=== PATIENT | male | born 1980 | race Caucasian/White ===

== ENCOUNTER 2025-04-29 23:12 | Emergency (ER) | payer SELFPAY ==
[2025-04-29 23:16] VITALS: BP 121/66; PULSE 49; RESP 16; TEMP 36.8; O2SAT 100
--- NOTE | 2025-04-29 23:19 | W.ED.GENAD ---
Discharge Plan Disposition Patient Disposition: [facility] Condition: Good Discharge Details Clinical Impression: Encounter for medical clearance for patient hold Primary Care Provider: Unknown,Unknown ED Provider: Estuardo Smallwood and New Rx's Prescriptions: No Action buprenorphine-naloxone [Suboxone] sublingual Discharge Instructions Additional Instructions: You have been seen and medically cleared with no apparent acute emergent issues or complaints. You are being released into police custody. Return to ED with any concerns. HPI General Mode of arrival: ambulatory. Date/Time Provider Initiated Documentation: 04/29/25 23:19. Limitations to Documentation: no limitations. Information obtained by: patient, police and RN notes reviewed. HPI Narrative: Patient is brought to ED by [facility] for medical clearance. Patient reportedly found slumped over in his vehicle with tinfoil in his lap. Patient has no complaints. He has no significant past medical history according to him. He is on Suboxone. He does admit to smoking marijuana but denies any alcohol use. He has no physical complaints. Related Data Home Medications ?Medication ?Instructions ?Recorded ?Confirmed buprenorphine-naloxone sublingual 04/29/25 Allergies Allergy/AdvReac Type Severity Reaction Status Date / Time Penicillins Allergy Unknown unknown Verified 04/29/25 23:21 General Stated Complaint: GenMedical NIR: 5 Exam Narrative Exam Narrative: Const: WDWN male in NAD. VS per triage. HEENT: NC/AT. Normal facial exam. Neck: Supple. Trachea midline. Lungs: Normal respiratory effort. Lungs with few scattered wheezes. Cor: RRR without murmur. Good radial pulses. GI: Soft/ND/NT. Neuro: A+O x 3. Normal speech, mentation, gait. Cranial nerves II - XII grossly intact. No gross motor or sensory deficit. Ext: No C/C/E. Course Vital Signs Vital signs: Vital Signs Temperature 98.3 F 04/29/25 23:16 Pulse 49 L 04/29/25 23:16 Respiratory Rate 16 04/29/25 23:16 Blood Pressure 121/66 04/29/25 23:16 Pulse Oximetry 100 04/29/25 23:16 Temperature 98.3 F 04/29/25 23:16 Temperature Source Tympanic 04/29/25 23:16 Pulse 49 L 04/29/25 23:16 Respiratory Rate 16 04/29/25 23:16 Blood Pressure 121/66 04/29/25 23:16 Blood Pressure Position Sitting 04/29/25 23:16 Pulse Oximetry 100 04/29/25 23:16 Oxygen Delivery Method Room Air 04/29/25 23:16 Oxygen Flow Rate 0 04/29/25 23:16 Pain Level 0 04/29/25 23:16 Medical Decision Making Patient brought into ED for medical clearance. Patient has no complaints of. Denies any significant past medical history. Vital signs and physical exam are essentially normal. He did have some diffuse scattered wheezing but is a smoker. He appears to have no acute medical condition and is cleared. He was released back into custody of [facility]. [facility] All Active Problems (Updated 04/29/25 @ 23:29 by Estuardo Smallwood MD) Encounter for medical clearance for patient hold (Acute) Social History Smoking/Tobacco Use Status: Current every day Tobacco Type: cigarettes Smoking risk assessment performed?: Yes Alcohol Intake: never Drug use: Occasionally Substance use type: marijuana Housing: house Do you feel safe at home: Yes Do you feel safe in your relationship?: Yes
[2025-04-29 23:25] VITALS: BP 121/66; PULSE 49; RESP 16; TEMP 36.8; O2SAT 100
== END 2025-04-29 23:31 ==
LOC: ER 23:39
PROVIDERS: Emergency Provider Emergency Medicine
DX: R07.9 Chest pain, unspecified (principal); I44.2 Atrioventricular block, complete; I48.0 Paroxysmal atrial fibrillation; F11.90 Opioid use, unspecified, uncomplicated; F17.210 Nicotine dependence, cigarettes, uncomplicated
CPT/HCPCS: 99284

== ENCOUNTER 2025-04-30 10:25 | Emergency (ER) | payer MEDICAID, SELFPAY ==
--- NOTE | 2025-04-30 10:15 | RT.EKG_ITS ---
APPROVED REPORT Exam: Resting ECG Reason for Exam: chest pain, sob Patient Location: E HR:52 bpm ECG Measurements Heart Rate 52 AXIS SD [id number] P [id number] QRSd 87 QRS 81 QT 443 T 61 QTc 413 Conclusion A-flutter/fibrillation w/ complete AV block...A-rate>220, V-rate< 60, AV dissoc Anterior infarct, old...Q >40mS, abnormal ST-T, V2-V5 significant motion artifcat, sinus, no stemi
[2025-04-30 10:27] VITALS: BP 131/70; PULSE 57; RESP 16; TEMP 37.2; O2SAT 100
--- NOTE | 2025-04-30 10:30 | DI.RAD_ITS ---
Exam(s) XR CHEST 2V PA LATERAL EXAM: XR CHEST 2V PA LATERAL CLINICAL HISTORY: chest pain TECHNIQUE: 2D digital imaging was performed of the chest. Two images were obtained. PA and lateral views were obtained. COMPARISON: No exams were available for comparison FINDINGS: MEDIASTINUM: Normal. HEART: Normal. PULMONARY VASCULATURE: Normal. LUNGS: Clear. PLEURAL SPACE: No pleural effusion or pneumothorax. BONE:Within normal limits for the patient's age. OTHER FINDINGS:Normal. IMPRESSION: No acute pulmonary findings. DATA REPOSITORY: RADIATION DOSE DELIVERED:
[2025-04-30 10:37] VITALS: RESP 16
--- NOTE | 2025-04-30 10:42 | W.ED.GENAD ---
Discharge Plan Disposition Patient Disposition: Home Condition: Stable Discharge Details Clinical Impression: Chest pain Primary Care Provider: Unknown,Unknown ED Provider: Christian Rogers Home Meds and New Rx's Prescriptions: New doxycycline hyclate 100 mg tablet 100 mg PO BID Qty: 14 0RF Discontinued buprenorphine-naloxone [Suboxone] sublingual Discharge Instructions Additional Instructions: Follow-up with your primary care provider within 1 week or express care if symptoms continue. If you feel significantly more ill or have new symptoms such as persistent vomiting or severe worsening pain return to the emergency department for reevaluation. HPI General Mode of arrival: EMS. Date/Time Provider Initiated Documentation: 04/30/25 10:30. Limitations to Documentation: no limitations. Information obtained by: patient. History of Present Illness 44 year old M presents to the emergency department with the chief complaint of chest pain, described as moderate, Quality is described as aching, Patient reports no radiation. Patient started experiencing this hour(s) (2) and it has been constant. No relieving factors improve symptom(s), No exacerbating factors reported . Patient notes chest pain; denies shortness of breath. Patient did receive the following treatments prior to arrival, none Related Data Home Medications ?Medication ?Instructions ?Recorded ?Confirmed doxycycline hyclate 100 mg tablet 100 mg PO BID #14 tabs 04/30/25 Previous Rx's ?Medication ?Instructions ?Recorded doxycycline hyclate 100 mg tablet 100 mg PO BID #14 tabs 04/30/25 Allergies Allergy/AdvReac Type Severity Reaction Status Date / Time Penicillins Allergy Unknown unknown Verified 04/29/25 23:21 General Stated Complaint: Chest Pain NIR: 2 Review of Systems All systems reviewed & are unremarkable except as noted in HPI and below Constitutional Constitutional: Denies chills, Denies fever(s) and Denies weakness Cardiovascular Cardiovascular: Reports chest pain and Denies dyspnea Respiratory Respiratory: Denies cough and Denies dyspnea Gastrointestinal Gastrointestinal: Denies abdominal pain, Denies nausea and Denies vomiting Neurologic Neurologic: Denies weakness Exam Const General: no acute distress Orientation: alert HENMT Head: normal to inspection Ears: external ears normal General nose exam: external nose normal Mouth: moist mucous membranes Eyes General: appearance normal, both eyes and all related structures Neck Neck: normal visual inspection Resp Effort & Inspection: normal respiratory effort and able to speak in complete sentences Auscultation: clear to auscultation bilaterally Cardio Jugular venous pressure: no JVD Rate: regular rate Skin General skin exam: no rashes or lesions noted Neuro General: patient alert and patient oriented x3 Extrem General: normal to inspection Psych Mental Status: mental status grossly normal Course Vital Signs Vital signs: Vital Signs Temperature 37.2 C 04/30/25 10:27 Pulse 57 L 04/30/25 10:27 Respiratory Rate 16 04/30/25 10:27 Blood Pressure 131/70 04/30/25 10:27 Pulse Oximetry 100 04/30/25 10:27 Temperature 37.2 C 04/30/25 10:27 Temperature Source Tympanic 04/30/25 10:27 Pulse 57 L 04/30/25 10:27 Respiratory Rate 16 04/30/25 10:27 Blood Pressure 131/70 04/30/25 10:27 Blood Pressure Position Supine 04/30/25 10:27 Pulse Oximetry 100 04/30/25 10:27 Oxygen Delivery Method Room Air 04/30/25 10:27 Oxygen Flow Rate 0 04/30/25 10:27 Pain Level 8 04/30/25 10:27 Medical Decision Making 44-year-old male who states he uses heroin and is from [facility] and who was just released from the correctional center comes in with EMS with complaint of chest pain that started few hours ago laying down. He denies any pain with exertion, no radiation of pain, no diaphoresis or nausea or vomiting. No tearing back pain. He has no leg or calf tenderness. He is stable on arrival, heart rate in the 50s and sinus bradycardia. Clear lung sounds, no JVD, no leg swelling or calf tenderness on exam. Equal peripheral pulses. Given his complaints of chest pain I will check a CBC, CMP and troponins. He has no tearing back pain and pulses are equal bilaterally so I doubt dissection. He is PERC negative and will score low so I doubt PE. Patient stable, x-ray and lab work unremarkable. He has had an increased cough from baseline and still smokes along with a component with doxycycline for potential bronchitis. He will follow-up with his PCP or express care if not improving and return precautions given Differential Diagnosis Differential Diagnosis: Chest wall pain, anxiety STEMI Lab Data Lab results reviewed: Yes I reviewed the patient's lab results. ECG Data Attestation: I personally reviewed and interpreted this ECG (s) as follows: Prior ECG tracings: not available for review Interpretation: Sinus bradycardia, rate of 52, no STEMI, significant motion artifact 2nd ekg sinus bradycardia rate of 51 no stemi Quality:SDOH Health Related Social Needs: No Data to Display PFSH All Active Problems (Updated 04/30/25 @ 12:04 by Christian Rogers MD) Chest pain (Acute) Encounter for medical clearance for patient hold (Acute) Social History Smoking/Tobacco Use Status: Current every day Tobacco Type: cigarettes Smoking risk assessment performed?: Yes Alcohol Intake: never Drug use: Daily Substance use type: marijuana, crack/cocaine and heroin Housing: house Do you feel safe at home: Yes Do you feel safe in your relationship?: Yes
[2025-04-30 10:44] LABS: Abs Immature Grans 0.02 10^3/uL (0.0-0.06); Absolute Basophil Count 0.05 10^3/uL (0.0-0.2); Absolute Eosinophil Count 0.01 10^3/uL (0.0-0.7); Absolute Lymphocyte Count 1.64 10^3/uL (1.2-3.4); Absolute Monocyte Count 0.56 10^3/uL (0.1-0.8); Absolute Neutrophil Count 5.77 10^3/uL (1.2-6.7); Basophils % 0.6 %; Eosinophils % 0.1 %; HCT 41.2 % (40.0-50.0); Immature Grans % 0.2 %; Lymphocytes % 20.4 %; MCH 29.8 pg (27.0-33.0); MCV 88 fL (80-95); MPV 9.8 fL (8.0-11.0); Neutrophils % 71.7 %; Platelet Count 269 10^3/uL (130-400); RDW 11.8 % (11.8-14.1); RDW-SD 38.2 fL; WBC 8.05 10^3/uL (4.4-10.8)
--- NOTE | 2025-04-30 10:45 | RT.EKG_ITS ---
APPROVED REPORT Exam: Resting ECG Reason for Exam: chest pain, sob Patient Location: E HR:51 bpm ECG Measurements Heart Rate 51 AXIS HI 138 P 61 QRSd 104 QRS 70 QT 457 T 58 QTc 421 Conclusion Sinus bradycardia...rate< 60 Left ventricular hypertrophy...multiple voltage criteria Anterior infarct, old...Q >40mS, abnormal ST-T, V2-V5
[2025-04-30 11:04] LABS: ALT 25 U/L (16-63); AST 25 U/L (15-37); Alkaline Phosphatase 48 U/L (46-116); Anion Gap 7.1 mmol/L (3-11); BUN 13 mg/dL (7-18); Bilirubin, Total 1.2 mg/dL (0.2-1.0); CO2 29.9 mmol/L (21.0-32.0); CREATININE 0.7 mg/dL (0.70-1.30); Calcium 8.8 mg/dL (8.5-10.1); Chloride 100 mmol/L (98-107); Estimated GFR 116.52 (mL/min/1.73m2); Glucose 96 mg/dL (74-106); Magnesium 2.1 mg/dL (1.8-2.4); Potassium 3.7 mmol/L (3.5-5.1); Sodium 137 mmol/L (136-145); Total Protein 6.8 g/dL (6.4-8.2); Troponin I 9 ng/L (<or=76)
[2025-04-30 11:07] VITALS: BP 144/64; PULSE 61; RESP 13; TEMP 37.4; O2SAT 100
[2025-04-30 11:47] LABS: Troponin I 8 ng/L (<or=76)
[2025-04-30 11:51] VITALS: BP 131/56; PULSE 57; RESP 12; TEMP 37.5; O2SAT 96
[2025-04-30] MEDS: Acetaminophen 500 MG TAB 1000 MG PO (12:08)
[2025-04-30] MEDS: Doxycycline Hyclate 100 MG CAP PO (12:08)
--- NOTE | 2025-04-30 12:10 | NUR.NOTE ---
pt called his father Uriel [phone] , he stated that he could not not pick him. pt s [place] and he has the number to that location. pt has no phone and anticipates discharge upNursing Note:
[2025-04-30 12:23] LABS: COVID-19 PCR Negative (Negative); Influenza A PCR Negative (Negative); Influenza B PCR Negative (Negative); RSV PCR Negative (Negative)
[2025-04-30 12:24] LABS: Source Nasopharynx
== END 2025-04-30 12:35 | disposition home or self-care (01) ==
LOC: ER 12:16
PROVIDERS: Emergency Provider Emergency Medicine
DX: R07.9 Chest pain, unspecified (principal); R05.1 Acute cough; F17.210 Nicotine dependence, cigarettes, uncomplicated
CPT/HCPCS: 99284 ×2; 36415; 80053; 87637; 93005; 71046; 83735; 84484; 85025; 93010